=== PATIENT | male | born 1950 | race Caucasian/White ===

== ENCOUNTER 2016-06-02 12:23 | Emergency (ER) | payer MEDICARE ==
[~2016-06-02] VITALS: Ht 182.9 cm; Wt 95.5 kg
[~2016-06-02 12:23] MED LIST: FLOMAX 0.40.4 MG/CAP PO; GLUCOSAMINE PO; LORTAB 5/500 501 TAB PO; MULTIPLE VITAMI1 CAP PO; ZOFRAN 4MG T4 MG/TAB PO
[2016-06-02 12:27] VITALS: TEMP 98.1
[2016-06-02] MEDS ORDERED: GLUCOSAMINE 1000 PO (12:31)
[2016-06-02 13:09] LABS: BASO % 0.5 % (0.0-2.0); EOS # 0.4 (0.0-0.7); EOS % 5.5 % (0-4.0); GRAN # 5.3 (1.4-6.5); GRAN % 70.2 % (42.2-75.2); HEMATOCRIT 46.3 % (42.0-52.0); HEMOGLOBIN 15.5 g/dl (13.5-18.0); LYMPH # 1.3 (1.2-3.4); LYMPH % 17.4 % (20.0-51.0); MEAN CELL VOLUME 89 fl (80.0-100.0); MEAN CORPUSCULAR HEMOGLOBIN 30 pg (27.0-31.0); MEAN CORPUSCULAR HGB CONC 34 g/dl (33.0-37.0); MEAN PLATELET VOLUME 9.3 fl (7.4-10.4); MONO # 0.5 (0.1-0.6); PLATELET COUNT 264 K/mm3 (130-400); RED BLOOD COUNT 5.18 M/mm3 (4.20-5.60); REDCELL DISTRIBUTION WIDTH-CV 12.7 % (11.5-14.5); WHITE BLOOD COUNT 7.5 K/mm3 (4.8-10.8)
[2016-06-02 13:19] LABS: ADJUSTED CALCIUM 9.5 mg/dL (8.4-10.2); ALBUMIN 4.1 gm/dL (3.5-5.0); BILIRUBIN,TOTAL 1.1 mg/dL (0.0-1.0); CALCIUM 9.6 mg/dL (8.4-10.2); CREATININE, serum 1.01 mg/dL (0.66-1.25); POTASSIUM 4.1 mmol/L (3.4-5.0); TOTAL PROTEIN 7.7 gm/dL (6.4-8.2)
[2016-06-02 13:20] LABS: INFLUENZA B NEGATIVE
[2016-06-02 13:30] LABS: PH 5 (5-8); SQUAMOUS EPITHELIAL 0-2 /hpf; URINE APPEARANCE Hazy; URINE BACTERIA None Seen /hpf; URINE BILIRUBIN Negative (NEGATIVE); URINE BLOOD Negative (NEGATIVE); URINE COLOR Yellow; URINE GLUCOSE Negative (NEGATIVE); URINE KETONE Trace (NEGATIVE); URINE RBC 0-2 /hpf; URINE UROBILINOGEN Negative (NEGATIVE); URINE WBC 0-2 /hpf
[2016-06-02] MEDS ORDERED: NORCOELIX PO (15:16)
[2016-06-02] MEDS ORDERED: PREDNISONE10 MG PO (15:16)
[2016-06-02 15:26] VITALS: BP 142/91; PULSE 64
== END 2016-06-02 15:27 | disposition home or self-care (01) ==
LOC: COL.ER 12:23
PROVIDERS: Nurse Practitioner
DX: R05 Cough (principal); R10.11 Right upper quadrant pain; R07.89 Other chest pain
CPT/HCPCS: J7030; Q9967

== ENCOUNTER → 2017-07-06 | Outpatient (CLI) | payer MEDICARE ==
[~2017-07-06] MED LIST changes: +GLUCOSAMINE 1000 PO; +NORCOELIX PO; +PREDNISONE10 MG PO
== END ==
LOC: COL.RAD 09:31
DX: N28.1 Cyst of kidney, acquired (principal); D18.03 Hemangioma of intra-abdominal structures; K44.9 Diaphragmatic hernia without obstruction or gangrene
CPT/HCPCS: A9585

== ENCOUNTER 2017-11-09 16:40 | Emergency (ER) | payer MEDICARE ==
[~2017-11-09] VITALS: Ht 182.9 cm; Wt 95.5 kg
[2017-11-09 16:50] VITALS: BP 153/95; TEMP 98
[2017-11-09] MEDS ORDERED: SINGULAIR 110 MG/TAB PO (16:55)
[2017-11-09 17:26] LABS: BASO # 0.1 (0.0-0.2); BASO % 0.4 % (0.0-2.0); EOS # 0.2 (0.0-0.7); EOS % 1.5 % (0-4.0); GRAN # 9.3 (1.4-6.5); GRAN % 83.6 % (42.2-75.2); HEMATOCRIT 45.4 % (42.0-52.0); HEMOGLOBIN 15.5 g/dl (13.5-18.0); LYMPH % 9.1 % (20.0-51.0); MEAN CELL VOLUME 88 fl (80.0-100.0); MEAN CORPUSCULAR HEMOGLOBIN 30 pg (27.0-31.0); MEAN CORPUSCULAR HGB CONC 34 g/dl (33.0-37.0); MONO # 0.6 (0.1-0.6); PLATELET COUNT 271 K/mm3 (130-400); RED BLOOD COUNT 5.14 M/mm3 (4.20-5.60); REDCELL DISTRIBUTION WIDTH-CV 13.2 % (11.5-14.5)
[2017-11-09 17:32] LABS: PROTHROMBIN TIME 11.8 SECONDS (9.7-12.8)
[2017-11-09 17:40] LABS: ALANINE AMINOTRANSFERASE 29 U/L (21-72); ALBUMIN 3.9 gm/dL (3.5-5.0); ALKALINE PHOSPHATASE 74 U/L (50-136); ANION GAP 14 mmol/L (7-16); AST,SGOT 30 U/L (15-37); BILIRUBIN,TOTAL 0.9 mg/dL (0.0-1.0); BLOOD UREA NITROGEN 16 mg/dL (9-20); CARBON DIOXIDE 26 mmol/L (22-30); CHLORIDE 106 mmol/L (98-107); CREATININE, serum 1.01 mg/dL (0.66-1.25); GLUCOSE 108 mg/dL (74-106); POTASSIUM 4.1 mmol/L (3.4-5.0); SODIUM 146 mmol/L (137-145); TOTAL PROTEIN 7.3 gm/dL (6.4-8.2)
[2017-11-09 17:44] LABS: COLLECTION METHOD CLEAN CATCH
[2017-11-09 17:54] LABS: TROPONIN-I < 0.012 ng/mL (0.000-0.034)
[2017-11-09 18:03] LABS: BUDDING YEAST Present /hpf; MUCOUS Present /lpf; PH 5 (5-8); SQUAMOUS EPITHELIAL 0-2 /hpf; URINE APPEARANCE Hazy; URINE BACTERIA Rare /hpf; URINE BILIRUBIN Negative (NEGATIVE); URINE BLOOD 3+ (NEGATIVE); URINE COLOR Yellow; URINE GLUCOSE Negative (NEGATIVE); URINE KETONE Negative (NEGATIVE); URINE LEUKOCYTE ESTERASE Negative (NEGATIVE); URINE NITRATE Negative (NEGATIVE); URINE PROTEIN(semi-quant) 1+ (NEGATIVE); URINE RBC >50 /hpf; URINE UROBILINOGEN Negative (NEGATIVE)
[2017-11-09] MEDS ORDERED: ZOFRAN ODT4 MG PO (18:31)
[2017-11-09] MEDS ORDERED: NORCO 325 MG-51 TAB PO (18:31)
[2017-11-09 18:56] VITALS: PULSE 77
== END 2017-11-09 18:57 | disposition home or self-care (01) ==
LOC: COL.ER 16:40
PROVIDERS: Emergency Medicine
DX: N20.2 Calculus of kidney with calculus of ureter (principal); Z87.442 Personal history of urinary calculi
CPT/HCPCS: J1885; J2765; J3010; J7030

== ENCOUNTER 2018-01-08 09:23 | Emergency (ER) | payer MEDICARE ==
[~2018-01-08] VITALS: Ht 182.9 cm; Wt 94.1 kg
[~2018-01-08 09:23] MED LIST changes: +NORCO 325 MG-51 TAB PO; +SINGULAIR 110 MG/TAB PO; +ZOFRAN ODT4 MG PO
[2018-01-08 09:29] VITALS: TEMP 97.3
[2018-01-08 09:42] LABS: BASO % 0.3 % (0.0-2.0); EOS # 0.2 (0.0-0.7); EOS % 1.7 % (0-4.0); GRAN # 7.3 (1.4-6.5); HEMATOCRIT 43.9 % (42.0-52.0); LYMPH % 11.5 % (20.0-51.0); MEAN CELL VOLUME 88 fl (80.0-100.0); MEAN CORPUSCULAR HEMOGLOBIN 30 pg (27.0-31.0); MEAN CORPUSCULAR HGB CONC 34 g/dl (33.0-37.0); MEAN PLATELET VOLUME 9.1 fl (7.4-10.4); MONO # 0.5 (0.1-0.6); MONO % 5.9 % (1.7-9.3); PLATELET COUNT 188 K/mm3 (130-400); RED BLOOD COUNT 4.98 M/mm3 (4.20-5.60); REDCELL DISTRIBUTION WIDTH-CV 13.2 % (11.5-14.5)
[2018-01-08 09:55] LABS: ALBUMIN 3.7 gm/dL (3.5-5.0); BILIRUBIN,TOTAL 1.3 mg/dL (0.0-1.0); C-REACTIVE PROTEIN 0.9 mg/dL (0.0-0.9); CALCIUM 8.9 mg/dL (8.4-10.2); CREATININE, serum 1.09 mg/dL (0.66-1.25); POTASSIUM 3.8 mmol/L (3.4-5.0); TOTAL PROTEIN 6.7 gm/dL (6.4-8.2)
[2018-01-08] MEDS ORDERED: ZOFRAN 4MG T4 MG/TAB PO (11:22)
[2018-01-08] MEDS ORDERED: NORCO 325 MG-51 TAB PO (11:22)
[2018-01-08] MEDS ORDERED: FLOMAX 0.40.4 MG/CAP PO (11:22)
[2018-01-08 13:00] LABS: COLLECTION METHOD CLEAN CATCH
[2018-01-08 13:08] LABS: MUCOUS Present /lpf; PH 5 (5-8); SQUAMOUS EPITHELIAL 0-2 /hpf; URINE APPEARANCE Clear; URINE BACTERIA None Seen /hpf; URINE BILIRUBIN Negative (NEGATIVE); URINE BLOOD 1+ (NEGATIVE); URINE COLOR Yellow; URINE GLUCOSE Negative (NEGATIVE); URINE KETONE 1+ (NEGATIVE); URINE LEUKOCYTE ESTERASE Negative (NEGATIVE); URINE NITRATE Negative (NEGATIVE); URINE PROTEIN(semi-quant) Negative (NEGATIVE); URINE UROBILINOGEN Negative (NEGATIVE)
[2018-01-08 13:25] VITALS: BP 129/74; PULSE 59
== END 2018-01-08 13:25 | disposition home or self-care (01) ==
LOC: COL.ER 09:23
PROVIDERS: Physician Assistant
DX: N20.0 Calculus of kidney (principal)
CPT/HCPCS: J1170; J1885; J2405; J7030; Q9967

== ENCOUNTER 2020-09-30 19:36 | Emergency (ER) | payer MEDICARE ==
[~2020-09-30] VITALS: Ht 182.9 cm; Wt 95.5 kg
[2020-09-30 20:19] LABS: BASO # 0.1 (0.0-0.2); BASO % 0.6 % (0.0-2.0); EOS # 0.3 (0.0-0.7); EOS % 3.7 % (0-4.0); GRAN # 6.4 (1.4-6.5); HEMATOCRIT 43.5 % (42.0-52.0); HEMOGLOBIN 14.7 g/dl (13.5-18.0); LYMPH # 1.2 (1.2-3.4); LYMPH % 14.1 % (20.0-51.0); MEAN CELL VOLUME 89 fl (80.0-100.0); MEAN CORPUSCULAR HEMOGLOBIN 30 pg (27.0-31.0); MEAN CORPUSCULAR HGB CONC 34 g/dl (33.0-37.0); MEAN PLATELET VOLUME 9.2 fl (7.4-10.4); MONO # 0.5 (0.1-0.6); MONO % 6.2 % (1.7-9.3); PLATELET COUNT 229 K/mm3 (130-400); RED BLOOD COUNT 4.88 M/mm3 (4.20-5.60); REDCELL DISTRIBUTION WIDTH-CV 12.7 % (11.5-14.5)
[2020-09-30 20:31] LABS: ALBUMIN 3.9 gm/dL (3.5-5.0); BILIRUBIN,TOTAL 0.9 mg/dL (0.0-1.0); CALCIUM 8.8 mg/dL (8.4-10.2); CREATININE, serum 1.18 (0.66-1.25); POTASSIUM 3.6 mmol/L (3.4-5.0); TOTAL PROTEIN 7.1 gm/dL (6.4-8.2)
[2020-09-30 21:27] LABS: COLLECTION METHOD CLEAN CATCH
[2020-09-30 21:59] LABS: MUCOUS Present /lpf; PH 5 (5-8); SQUAMOUS EPITHELIAL 0-2 /hpf; URINE APPEARANCE Cloudy; URINE BACTERIA None Seen /hpf; URINE BILIRUBIN Negative (NEGATIVE); URINE BLOOD 3+ (NEGATIVE); URINE COLOR Amber; URINE GLUCOSE Negative (NEGATIVE); URINE KETONE Negative (NEGATIVE); URINE LEUKOCYTE ESTERASE Negative (NEGATIVE); URINE NITRATE Negative (NEGATIVE); URINE PROTEIN(semi-quant) 2+ (NEGATIVE); URINE RBC >50 /hpf; URINE UROBILINOGEN Negative (NEGATIVE)
[2020-09-30] MEDS ORDERED: TYLENOL 325MG325 MG PO (22:32)
[2020-09-30] MEDS ORDERED: FLOMAX 0.40.4 MG/CAP PO (22:32)
[2020-09-30] MEDS ORDERED: MOTRIN 400400 MG/TAB PO (22:32)
[2020-09-30 22:48] VITALS: BP 164/74; PULSE 76; TEMP 97.4
== END 2020-09-30 22:50 | disposition home or self-care (01) ==
LOC: COL.ER 19:36
PROVIDERS: Emergency Medicine
DX: R10.9 Unspecified abdominal pain (principal); Z87.442 Personal history of urinary calculi
CPT/HCPCS: J1885; J2405; J7040

== ENCOUNTER 2020-10-01 09:31 | Emergency (ER) | payer MEDICARE ==
[~2020-10-01] VITALS: Ht 182.9 cm; Wt 95.5 kg
[~2020-10-01 09:31] MED LIST changes: +MOTRIN 400400 MG/TAB PO; +TYLENOL 325MG325 MG PO
[2020-10-01 09:40] VITALS: TEMP 97.7
[2020-10-01 11:07] VITALS: BP 131/79; PULSE 61
== END 2020-10-01 11:07 | disposition home or self-care (01) ==
LOC: COL.ER 09:31
DX: N20.1 Calculus of ureter (principal); N21.0 Calculus in bladder

== ENCOUNTER 2022-01-30 12:21 | Emergency (ER) | payer MEDICARE ==
[~2022-01-30] VITALS: Ht 182.9 cm; Wt 95.5 kg
[2022-01-30 12:32] VITALS: TEMP 97.9
[2022-01-30 13:15] LABS: BASO % 0.4 % (0.0-2.0); EOS # 0.2 K/mm3 (0.0-0.7); EOS % 3.9 % (0.0-4.0); GRAN # 3.9 K/mm3 (1.4-6.5); GRAN % 70.5 % (42.2-75.2); HEMOGLOBIN 14.9 g/dl (13.5-18.0); LYMPH # 0.8 K/mm3 (1.2-3.4); MEAN CELL VOLUME 87 fl (80.0-100.0); MEAN CORPUSCULAR HEMOGLOBIN 30 pg (27-31); MEAN CORPUSCULAR HGB CONC 35 g/dl (33.0-37.0); MEAN PLATELET VOLUME 9.1 fl (7.4-10.4); MONO # 0.6 K/mm3 (0.1-0.6); MONO % 10.7 % (1.7-9.3); PLATELET COUNT 220 K/mm3 (130-400); RED BLOOD COUNT 4.92 M/mm3 (4.20-5.60); REDCELL DISTRIBUTION WIDTH-CV 12.5 % (11.5-14.5)
[2022-01-30 13:34] LABS: ALANINE AMINOTRANSFERASE 10 U/L (0-55); ALBUMIN 2.9 gm/dL (3.4-4.8); ALKALINE PHOSPHATASE 60 U/L (40-150); ANION GAP 11 mmol/L (7-16); AST,SGOT 12 U/L (5-34); BILIRUBIN,TOTAL 0.8 mg/dL (0.2-1.2); BLOOD UREA NITROGEN 15 mg/dL (8-26); CALCIUM 9.3 mg/dL (8.4-10.2); CARBON DIOXIDE 22 mmol/L (23-31); CHLORIDE 104 mmol/L (98-107); CREATININE, serum 0.99 mg/dL (0.72-1.25); GLUCOSE 99 mg/dL (70-99); SODIUM 137 mmol/L (136-145); TOTAL PROTEIN 6.9 gm/dL (6.2-8.1)
[2022-01-30 13:39] LABS: TROPONIN-I < 0.010 ng/mL (0.00-0.033)
[2022-01-30] MEDS ORDERED: ZITHROMAX Z PA250 MG PO (14:18)
[2022-01-30] MEDS ORDERED: PREDNISONE50 MG PO (14:18)
[2022-01-30 14:30] VITALS: BP 121/72; PULSE 58
== END 2022-01-30 14:30 | disposition home or self-care (01) ==
LOC: COL.ER 12:21
PROVIDERS: Emergency Medicine
DX: R06.02 Shortness of breath (principal); Z20.822 Contact with and (suspected) exposure to COVID-19
CPT/HCPCS: J7512

== ENCOUNTER 2022-04-11 07:00 | Day surgery (SDC) | payer MEDICARE ==
[~2022-04-11] VITALS: Ht 182.9 cm; Wt 98.2 kg
[~2022-04-11 07:00] MED LIST changes: +PREDNISONE50 MG PO; +ZITHROMAX Z PA250 MG PO
[2022-04-11 07:50] VITALS: BP 144/94; PULSE 65; TEMP 96.9
[2022-04-11 09:09] VITALS: BP 119/92; PULSE 67; TEMP 98.7
[2022-04-11 09:15] VITALS: BP 132/115; PULSE 70
[2022-04-11 09:25] VITALS: BP 103/86; PULSE 66
[2022-04-11 09:30] VITALS: BP 110/76; PULSE 75
[2022-04-11 09:38] VITALS: BP 102/69; PULSE 63
--- NOTE | 2022-04-11 13:53 | NUR ---
PATIENT RETURNED TO ROOM, SEATED AND ATTACHED TO VITAL SIGN MONITOR. VITAL SIGNS STABLE. NO COMPLAINTS OF ABDOMINAL PAIN OR NAUSEA. PATIENT IS ALERT AND ORIENTED. MUFFIN AND JUICE GIVEN TO PATIENT AND TOLERATED WELL. POST PROCEDURE INSTRUCTIONS GIVEN AT 0922, QUESTIONS ANSWERED AND EDUCATIONAL MATERIAL SENT HOME WITH PATIENT. DR. OLIVER IN PATIENT ROOM AT 0936. IV DISCONTINUED AT 0941. PATIENT WAS DISCHARGED AT 0953 WITH HIS TRANSPORT.
== END 2022-04-11 09:53 | disposition home or self-care (01) ==
LOC: SDCO 07:00
DX: Z12.11 Encounter for screening for malignant neoplasm of colon (principal); D12.5 Benign neoplasm of sigmoid colon; K63.5 Polyp of colon
CPT/HCPCS: J2704; J7120

== ENCOUNTER → 2022-08-27 | Outpatient (CLI) | payer MEDICARE ==
[~2022-08-27] VITALS: Ht 183 cm; Wt 99.3 kg
[2022-08-27 11:00] VITALS: BP 109/73; PULSE 62; TEMP 97.4
[2022-08-27 12:10] VITALS: BP 142/83; PULSE 74
[2022-08-27 12:12] VITALS: BP 134/83; PULSE 70
== END ==
LOC: COL.CARD 09:58
DX: R07.9 Chest pain, unspecified (principal)
CPT/HCPCS: A9500; J2785